=== PATIENT | female | born 1990 | race Caucasian/White ===

== ENCOUNTER → 2017-08-28 | Outpatient (CLI) | payer BC ==
--- NOTE | 2017-08-28 19:29 | MR ---
EXAMINATION TYPE: MR brain wo/w con DATE OF EXAM: 08/28/2017 COMPARISON: NONE HISTORY: Hypopituitariasm TECHNIQUE: Multiplanar, multisequence images of the brain and brainstem is performed without and with IV contras t, utilizing 6 mL intravenous Gadavist . FINDINGS: Diffusion weighted images demonstrate no evidence of a recent infarct or other diffusion ab normality. There is no extra-axial fluid collection or significant white matter signal abnormality. The ventricular system and cisternal spaces are normal in size and appearance. The brain volume is age appropriate. Midline structures demonstrate normal morphology. The craniocervical junction appears within normal limits. Post contrast images demonstrate no abnormal enhancement. The dural venous sinuses appear pa tent. Changes of chronic sinusitis noted. Sella turcica has a normal appearance. Changes of chronic right m astoiditis noted. IMPRESSION: 1. No acute process. 2. Mild changes of chronic sinusitis and right mastoiditis.
== END | disposition home or self-care (01) ==
LOC: RADMRIMAIN 17:41
PROVIDERS: ATTEND Physician Assistant
DX: E23.0 Hypopituitarism (principal)
CPT/HCPCS: 70553; A9581

== ENCOUNTER → 2018-03-02 | Outpatient (CLI) | payer BC ==
[2018-03-02 12:27] LABS: ALT 57 U/L (9-52); AST 37 U/L (14-36); Albumin 4.4 g/dL (3.5-5.0); Alkaline Phosphatase 51 U/L (38-126); Anion Gap 8 mmol/L; Blood Urea Nitrogen 13 mg/dL (7-17); Calcium 9.6 mg/dL (8.4-10.2); Carbon Dioxide 26 mmol/L (22-30); Chloride 106 mmol/L (98-107); Glucose 80 mg/dL (74-99); Potassium 4.9 mmol/L (3.5-5.1); Sodium 140 mmol/L (137-145); Total Bilirubin 0.5 mg/dL (0.2-1.3); Total Protein 7.2 g/dL (6.3-8.2)
[2018-03-02 12:43] LABS: T4, Free (Free Thyroxine) 0.86 ng/dL (0.78-2.19)
[2018-03-03 02:52] LABS: ACTH 16.9 pg/mL (0.00-45.99)
== END | disposition home or self-care (01) ==
LOC: LABWHC1 11:45
PROVIDERS: ATTEND Internal Medicine Endocrinology, Diabetes & Metabolism
DX: N91.1 Secondary amenorrhea (principal)
CPT/HCPCS: 36415; 80053; 82024; 82533; 82670; 83001; 83002; 84146; 84439; 84443; 84480

== ENCOUNTER → 2018-03-05 | Outpatient (CLI) | payer BC ==
[2018-03-05 16:06] LABS: T4, Free (Free Thyroxine) 0.85 ng/dL (0.78-2.19)
== END | disposition home or self-care (01) ==
LOC: LABWHC1 15:13
PROVIDERS: ATTEND Internal Medicine Endocrinology, Diabetes & Metabolism
DX: N91.1 Secondary amenorrhea (principal); R94.6 Abnormal results of thyroid function studies
CPT/HCPCS: 36415; 84439; 84443; 84445; 84481

== ENCOUNTER → 2018-03-23 | Outpatient (CLI) | payer BC ==
[2018-03-23 14:10] LABS: T4, Free (Free Thyroxine) 0.8 ng/dL (0.78-2.19)
== END | disposition home or self-care (01) ==
LOC: LABWHC1 13:13
PROVIDERS: ATTEND Internal Medicine Endocrinology, Diabetes & Metabolism
DX: N91.1 Secondary amenorrhea (principal); R94.6 Abnormal results of thyroid function studies; R53.83 Other fatigue
CPT/HCPCS: 36415; 82670; 83001; 84146; 84305; 84439; 84443; 84481

== ENCOUNTER → 2018-04-08 | Outpatient (CLI) | payer BC ==
--- NOTE | 2018-04-09 12:22 | NM ---
EXAMINATION TYPE: NM thyroid image w uptake DATE OF EXAM: 04/09/2018 COMPARISON: NONE HISTORY: Abnormal thyroid results TECHNIQUE: Thyroid iodine uptake is calculated and images performed after the oral administration of 320 uCi 1-123 Capsule. FINDINGS: There is normal distribution of activity throughout the gland. No focal hot nodules or phot openic defects are evident. Uptake values are calculated. Uptake at 4 hours is 9.2%. Uptake at 24 hours is 22.8%. These values ar e normal. IMPRESSION: 1. Normal thyroid scan and uptake.
== END ==
LOC: RADNMMAIN 08:41
PROVIDERS: ATTEND Internal Medicine Endocrinology, Diabetes & Metabolism
DX: R94.6 Abnormal results of thyroid function studies (principal); R53.83 Other fatigue
CPT/HCPCS: 78014; A9516

== ENCOUNTER → 2018-06-05 | Outpatient (CLI) | payer BC ==
[2018-06-05 16:52] LABS: Albumin 4.3 g/dL (3.80-4.90); Albumin/Globulin Ratio 2.15 (1.20-2.10); Anion Gap 4.7 mmol/L (4.00-12.00); Calcium 9.1 mg/dL (8.7-10.3); Carbon Dioxide 25.3 mmol/L (21.6-31.8); Potassium 4.4 mmol/L (3.5-5.5); Total Bilirubin 0.3 mg/dL (0.2-1.2); Total Protein 6.3 g/dL (6.2-8.2)
[2018-06-05 17:00] LABS: T4, Free (Free Thyroxine) 0.9 ng/dL (0.80-1.80)
== END | disposition home or self-care (01) ==
LOC: LABWHC1 09:53
PROVIDERS: ATTEND Internal Medicine Endocrinology, Diabetes & Metabolism
DX: N91.1 Secondary amenorrhea (principal); R94.6 Abnormal results of thyroid function studies; R53.83 Other fatigue
CPT/HCPCS: 36415; 80053; 84439; 84443; 84481

== ENCOUNTER 2023-01-27 16:28 | Inpatient (IN) | payer OTHER ==
[2023-01-27] MEDS ORDERED: TRANEXAMIC 1,000 MG/100ML-NACL 1,000 MG in EMPTY BAG 1 BAG IV PRN (16:50)
[2023-01-27] MEDS ORDERED: TERBUTALINE 1 MG/ML VIAL SQ PRN (16:50)
[2023-01-27] MEDS ORDERED: METHYLERGONOVINE 0.2 MG/ML 1 ML AMP IM PRN (16:50)
[2023-01-27] MEDS ORDERED: LIDOCAINE 0.5% (PF) 5 MG/ML (50 ML SDV) SQ PRN (16:50)
[2023-01-27] MEDS ORDERED: CARBOPROST TROMETHAMINE 250 MCG/ML 1 ML AMP IM PRN (16:50)
[2023-01-27] MEDS ORDERED: OXYTOCIN 10 UNIT/ML 1 ML VIAL IM PRN (16:50)
[2023-01-27] MEDS ORDERED: miSOPROStoL 200 MCG TAB PO PRN (16:50)
[2023-01-27] MEDS: LACTATED RINGERS 1,000 ML IV SCH (17:24)
[2023-01-27 17:40] LABS: Basophils % (A) 0 %; Eosinophils # (A) 0.1 k/uL (0-0.7); Eosinophils % (A) 1 %; HCT 35.2 % (34.0-46.0); HGB 12.2 gm/dL (11.4-16.0); Lymphocytes # (A) 1.7 k/uL (1.0-4.8); Lymphocytes % (A) 22 %; MCH 33.3 pg (25.0-35.0); MCHC 34.6 g/dL (31.0-37.0); MCV 96.4 fL (80.0-100.0); Mean Platelet Volume 10.4; Monocytes # (A) 0.6 k/uL (0-1.0); Monocytes % (A) 9 %; Neutrophils % (A) 66 %; Platelet Count 175 k/uL (150-450); RBC 3.65 m/uL (3.80-5.40); WBC 7.5 k/uL (3.8-10.6)
[2023-01-27 17:41] VITALS: RESP 16
[2023-01-27] MEDS ORDERED: OXYTOCIN 30 UNITS/500 ML NS 30 UNIT in SALINE 1 500ML.BAG IV SCH (20:00)
[2023-01-28] MEDS: LACTATED RINGERS 1,000 ML IV SCH ×3 (00:12→21:05)
[2023-01-28] MEDS ORDERED: AMPICILLIN 2,000 MG in SODIUM CHLORIDE 0.9% 100 ML IVPB STA (03:34)
[2023-01-28] MEDS ORDERED: NALBUPHINE 10 MG/ML (10 ML MDV) IV PRN (06:17)
[2023-01-28] MEDS: AMPICILLIN 1,000 MG in SODIUM CHLORIDE 0.9% 50 ML IVPB SCH ×4 (08:02→21:05)
[2023-01-28] MEDS ORDERED: fentaNYL (PF) 50 MCG/ML 5 ML AMP ONE (09:55)
[2023-01-28] MEDS ORDERED: ROPIVACAINE 5 MG/ML 20 ML AMPULE ONE (09:55)
[2023-01-28] MEDS ORDERED: SODIUM CHLORIDE 0.9% 100 ML BAG ONE (09:55)
[2023-01-28] MEDS ORDERED: SIMETHICONE 80 MG CHEWABLE PO PRN (13:29)
[2023-01-28] MEDS ORDERED: ACETAMINOPHEN TAB 325 MG TAB PO PRN (13:29)
[2023-01-28] MEDS ORDERED: BENZOCAINE/MENTHOL SPRAY 1 GM/SPRAY AEROSOL TOPICAL PRN (13:29)
[2023-01-28] MEDS ORDERED: diphenhydrAMINE 25 MG CAP PO PRN (13:29)
[2023-01-28] MEDS ORDERED: LANOLIN CREAM 5 GM TUBE TOPICAL PRN (13:29)
[2023-01-28] MEDS ORDERED: ZOLPIDEM 5 MG TAB PO PRN (13:29)
[2023-01-28] MEDS ORDERED: diphenhydrAMINE 50 MG/ML 1 ML VIAL IVP PRN ×2 (13:29)
[2023-01-28] MEDS ORDERED: HYDROCORTISONE 2.5% RECTAL CREAM 30 GM TUBE RECTAL PRN (13:29)
[2023-01-28] MEDS ORDERED: diphenhydrAMINE 50 MG CAP PO PRN (13:29)
[2023-01-28] MEDS ORDERED: OXYTOCIN 30 UNITS/500 ML NS 30 UNIT in SALINE 1 500ML.BAG IV SCH (13:30)
--- NOTE | 2023-01-28 13:34 | P.PROBDLV ---
Vaginal Delivery Note - . Vaginal Delivery Note: Findings: Viable male infant delivered at 1306, weight of 5 lbs. 7 oz., Apgars of 9 and 9 at one and 5 minutes respectively. This is a 32-year-old 1 para 0 at 37 and one sevenths weeks, estimated due date of 814, that presented to labor and delivery last evening with complaints of rupture of membranes. Patient states she noted rupture of membranes around 1545, clear in nature. Patient presented to labor and delivery and was noted to be grossly ruptured. Patient was admitted to labor and delivery augmentation of labor was begun around midnight and she was minimally harsh. Patient was noted to be group beta strep culture negative. Antibiotics were begun at 12 hours post-rupture. Patient started become uncomfortable this morning, patient had epidural placed by the anesthesia department when she was 4 cm due to discomfort. Epidural was placed without difficulty. Patient made quick progress toward complete. Patient was placed in a modified lithotomy position and with excellent maternal effort brought the down to a presentation. With additional pushes she delivered the head followed by the anterior/posterior shoulder the body. Spontaneous cry was noted at and the infant was placed in the maternal abdomen. After two-minute delayed the umbilical cord was clamped and cut. The placenta was delivered spontaneously intact with a three-vessel cord being noted. On inspection the patient's vaginal vault a second-degree laceration was appreciated. This was injected with lidocaine and repaired in usual fashion with 3-0 Rapide. Bleeding was noted at the apex therefore 2 [id number] sutures were used to obtain hemostasis. Small amount of bleeding/oozing was still noted along the suture line, therefore Surgicel powder was placed on the site. Hemostasis was then noted. Uterus is noted to be firm and below the umbilicus. A red rubber catheter was used to drain the bladder of 200 mL of clear yellow urine. Estimated blood loss 200 mL. All counts were noted to be correct 2 at the end of delivery. Patient and infant tolerated delivery well and are resting comfortably.
--- NOTE | 2023-01-28 13:35 | P.HPOB ---
History of Present Illness H&P Date: 01/27/23 Chief Complaint: IUP at 37 and 0/7 weeks, PROM This is a 32-year-old 1 para 0 at 37-0/7 weeks that presents to labor and delivery with complaints of spontaneous rupture of membranes. Patient stated that she noted leakage of fluid around 1530. She denies contractions. She denies vaginal bleeding. She notes good movement, denies contractions or vaginal bleeding. Patient has been receiving routine care with myself, and it has been essentially uncomplicated. On bloodwork this patient is a blood type of B+, rubella status immune, RPR is nonreactive, hepatitis B surface antigen is negative, HIV is negative, group beta strep culture is negative. Review of Systems Constitutional: Denies chills, Denies fatigue, Denies fever Ears, nose, mouth and throat: Denies headache Cardiovascular: Reports leg edema Respiratory: Denies dyspnea Gastrointestinal: Denies constipation, Denies diarrhea, Denies nausea, Denies vomiting Genitourinary: Reports Past Medical History History of Any Multi-Drug Resistant Organisms: None Reported Smoking Status: Never smoker Medications and Allergies Home Medications Medication Instructions Recorded Confirmed Type Vit No.179/Iron/Folic 1 each PO DAILY 01/27/23 01/27/23 History [ Tablet] Allergies Allergy/AdvReac Type Severity Reaction Status Date / Time No Known Allergies Allergy Verified 01/27/23 16:46 Exam Osteopathic Statement: *. No significant issues noted on an osteopathic structural exam other than those noted in the History and Physical/Consult. 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 heart tones returned be category 1 and she is not harsh. Results Result Diagrams: 01/27/23 17:20 Assessment and Plan (1) 37 weeks gestation of Current Visit: Yes Status: Acute Code(s): Z3A.37 - 37 WEEKS GESTATION OF SNOMED Code(s): 76752122 (2) PROM (premature rupture of membranes) Current Visit: Yes Status: Acute Code(s): O42.90 - PAUL ROM, 7TH0 BETW RUPT & ONST LABR, UNSP WEEKS OF GEST SNOMED Code(s): 76968275 Plan: 32-year-old 1 para 0 at 37-0/7 weeks that presents with PROM. Patient is admitted to labor and delivery as she is noted to be grossly ruptured. Patient is noted to be group beta strep negative, we will monitor if spontaneous corrections do not begin we'll start Pitocin augmentation of labor.
[2023-01-28] MEDS: IBUPROFEN 600 MG TAB PO SCH ×3 (18:22→23:05)
[2023-01-28] MEDS: SENNOSIDES-DOCUSATE SODIUM 1 EACH TAB PO SCH (21:03)
[2023-01-29] MEDS: SENNOSIDES-DOCUSATE SODIUM 1 EACH TAB PO SCH (08:41)
[2023-01-29] MEDS ORDERED: PRENATAL VIT-IRON-FOLIC ACID 1 EACH TABLET PO SCH (09:00)
[2023-01-29] MEDS: IBUPROFEN 600 MG TAB PO SCH (10:52)
[2023-01-29 11:48] VITALS: PULSE 76
--- NOTE | 2023-01-29 13:27 | P.DS ---
Providers Date of admission: 01/27/23 16:54 Expected date of discharge: 01/29/23 Attending physician: Betsy Barker Primary care physician: Betsy Barker - Discharge Diagnosis(es) (1) 37 weeks gestation of Current Visit: Yes Status: Acute (2) PROM (premature rupture of membranes) Current Visit: Yes Status: Acute (3) Status post normal vaginal delivery Current Visit: Yes Status: Acute (4) Obstetric vaginal laceration with second degree perineal laceration Current Visit: Yes Status: Acute Hospital Course: This is a 32-year-old at 37 and one sevenths weeks that presented to labor and delivery with complaints of spontaneous rupture of membranes at 1545, on 724. Patient was admitted to labor and delivery with gross premature rupture of membranes. Patient was noting occasional cramping/contractions on admission. She was noted to be group beta strep negative. Patient had been receiving routine care with myself which is been essentially uncomplicated. Patient progressed through the night making no cervical change therefore Pitocin augmentation of labor was begun. At 12 hours status post rupture of membranes a ntibiotics were begun. Patient made good progress towards complete eventually becoming uncomfortable and requesting epidural placement. Epidural was placed without difficulty by the anesthesia department. Patient made quick progress toward complete began pushing. Patient had a normal spent taste vaginal delivery of a viable male weight of 5 lbs. 7 oz. Patient's course has been uneventful. On this day #1 she is a bleeding and voiding without difficulty. She is tolerating a regular diet without nausea or vomiting. States her pain is well-controlled. She denies concerns. She would like discharge home at 24 hours if possible. Patient Condition at Discharge: Good Plan - Discharge Summary New Discharge Prescriptions: No Action Vit No.179/Iron/Folic [ Tablet] 1 each PO DAILY Discharge Medication List Vit No.179/Iron/Folic [ Tablet] 1 each PO DAILY 01/27/23 [History] Follow up Appointment(s)/Referral(s): Betsy Barker DO [Primary Care Provider] - 4 Weeks Patient Instructions/Handouts: Vaginal Delivery (GEN), Vaginal Delivery (DC) Activity/Diet/Wound Care/Special Instructions: No tub baths or intercourse until 6 weeks . Patient is to call the office and make a routine 4 week check. [id number] ibuprofen as needed for pain. Should patient have any concerns prior visit she is asked call the office and be seen sooner. Discharge Disposition: HOME SELF-CARE
[2023-01-29 16:48] VITALS: BP 128/85; TEMP 98
== END 2023-01-29 17:14 | disposition home or self-care (01) | DRG 560 ==
LOC: FBPOP 16:28 → 4FBP 16:54
PROVIDERS: ADMIT Obstetrics & Gynecology Obstetrics; ATTEND Obstetrics & Gynecology Obstetrics
PROC: 0KQM0ZZ Repair Perineum Muscle, Open Approach (ICD-10-PCS; principal; 2023-01-28)
PROC: 10E0XZZ Delivery of Products of Conception, External Approach (ICD-10-PCS; principal; 2023-01-28)
DX: O42.02 Full-term premature rupture of membranes, onset of labor within 24 hours of rupture (principal); O70.1 Second degree perineal laceration during delivery; Z28.310 Unvaccinated for COVID-19; Z3A.37 37 weeks gestation of pregnancy; Z37.0 Single live birth
CPT/HCPCS: 59025; 84112; 85025; 86850; 86900; 86901; 99213